=== PATIENT | male | born 1995 ===

== ENCOUNTER 2023-12-15 19:56 | Emergency (ER) | payer OTHER ==
[~2023-12-15] VITALS: Ht 177.8 cm; Wt 100.0 kg
[2023-12-15 20:30] VITALS: TEMP 98.8
[2023-12-15] MEDS ORDERED: IBUP-1492 PO (22:39)
[2023-12-15] MEDS ORDERED: HYDR-4062 PO (22:39)
[2023-12-15 23:08] VITALS: BP 111/74; PULSE 90; RESP 20
== END 2023-12-15 23:08 | disposition home or self-care (01) ==
LOC: EMS 19:56
DX: S83.92XA Sprain of unspecified site of left knee, initial encounter (principal); W18.42XA Slipping, tripping and stumbling without falling due to stepping into hole or opening, initial encounter; Y93.89 Activity, other specified; Y92.89 Other specified places as the place of occurrence of the external cause; Y99.8 Other external cause status
CPT/HCPCS: 29505; 99283